=== PATIENT | female | born 1955 | race Caucasian/White ===

== ENCOUNTER 2021-10-23 14:11 | Emergency (ER) | payer MEDICARE, OTHER ==
[~2021-10-23 14:11] MED LIST: ALLEGRA ALLERG180 MG PO; ASPIRIN CHEWABL81 MG PO; AZELASTINE205.5 MCG/; BACLOFEN 10MG T10 MG PO; BENADRYL25 M1 PO; BROMIDE; BROMPHEN PO; BUPROPION XL300 MG PO; CERTAGEN1 EACH PO; COLACE100 MG PO; COQ-10100 MG PO; CRESTOR5 MG PO; CYMBALTA60 MG PO; DULCOLAX5 M1 PO; EFFEXOR XR150 MG PO; FEOSOL325 MG PO; FISH OIL 1,4001 EACH PO; FLONASE ALLER15.8 ML; HAIR, SKIN & N1 EACH PO; LASIX20 MG PO; LINZESS290 MCG PO; LISINOPRIL-HCT1 EAC2 PO; MONTELUKAST SOD10 MG PO; MUCINEX 600MG600 MG PO; NEXIUM40 MG PO; NORCO 5-325 TA1 EACH PO; PERCOCET 5-3251 EACH PO; PROBIOTIC1 EAC1 PO; SYNTHROID25 MCG PO; VIBRAMYCIN100 MG PO; VITAMIN D1000 UNI1 PO; XARELTO10 MG PO; ZOFRAN4 MG PO
== END 2021-10-23 16:49 | disposition home or self-care (01) ==
LOC: FER 14:11
DX: S00.83XA Contusion of other part of head, initial encounter (principal); I10 Essential (primary) hypertension; Z79.82 Long term (current) use of aspirin; Z79.899 Other long term (current) drug therapy; Z88.0 Allergy status to penicillin; Z88.8 Allergy status to other drugs, medicaments and biological substances; W01.0XXA Fall on same level from slipping, tripping and stumbling without subsequent striking against object, initial encounter; Y92.009 Unspecified place in unspecified non-institutional (private) residence as the place of occurrence of the external cause
CPT/HCPCS: 70450